=== PATIENT | female | born 1950 | race Caucasian/White ===

== ENCOUNTER → 2023-12-05 10:59 | Outpatient (REF) | payer MEDICARE, SELFPAY | LOC: RAD 10:59 | PROVIDERS: ATTENDING PHYSICIAN Nurse Practitioner; FAMILY PHYSICIAN Family Medicine; REFERRING PHYSICIAN Internal Medicine | DX: R16.0 Hepatomegaly, not elsewhere classified (principal); K82.4 Cholesterolosis of gallbladder | CPT/HCPCS: 76700 ==

== ENCOUNTER → 2023-12-07 06:25 | Day surgery (SDC) | payer MEDICARE, SELFPAY | LOC: GI 06:25 | PROVIDERS: ATTENDING PHYSICIAN Internal Medicine | DX: K21.9 Gastro-esophageal reflux disease without esophagitis (principal); K44.9 Diaphragmatic hernia without obstruction or gangrene; Z13.810 Encounter for screening for upper gastrointestinal disorder | CPT/HCPCS: 43235 ==

== ENCOUNTER → 2024-10-25 09:53 | Outpatient (REF) | payer MEDICARE, SELFPAY | LOC: HWRAD 09:53 | PROVIDERS: ATTENDING PHYSICIAN Internal Medicine Rheumatology; FAMILY PHYSICIAN Family Medicine | DX: M47.812 Spondylosis without myelopathy or radiculopathy, cervical region (principal) | CPT/HCPCS: 72052 ==

== ENCOUNTER → 2025-02-06 10:24 | Outpatient (REF) | payer MEDICARE, SELFPAY | LOC: HWRAD 10:24 | PROVIDERS: ATTENDING PHYSICIAN Internal Medicine Rheumatology; FAMILY PHYSICIAN Family Medicine | DX: M25.531 Pain in right wrist (principal); M05.9 Rheumatoid arthritis with rheumatoid factor, unspecified | CPT/HCPCS: 73110 ==